=== PATIENT | male | born 1950 | race African-American/Black ===

== ENCOUNTER 2020-10-10 07:36 | Inpatient (IN) | payer OTHER, MEDICARE ==
[~2020-10-10] VITALS: Ht 182.9 cm; Wt 101.7 kg
[2020-10-10 08:09] LABS: Basophils # (auto) 0 10 ^3/uL (0-0.2); Basophils % (auto) 0.9 % (0.0-2.0); Eosinophils # (auto) 0.2 10 ^3/uL (0-0.8); Eosinophils % (auto) 3.8 % (0.0-7.0); Hematocrit 47.2 % (41.0-53.0); Hemoglobin 16.4 g/dL (13.5-17.5); Lymphocytes # (auto) 1.3 10 ^3/uL (0.4-5.4); Lymphocytes % (auto) 23.1 % (10.0-50.0); Mean Corpuscular Hemoglobin 28.7 pg (28.0-32.0); Mean Corpuscular Hgb Conc. 34.7 g/dL (32.0-36.0); Mean Corpuscular Volume 82.6 fL (80.0-100.0); Monocytes # (auto) 0.4 10 ^3/uL (0-1.3); Monocytes % (auto) 7.4 % (0.0-12.0); Neutrophils # (auto) 3.5 10 ^3/uL (1.6-8.6); Neutrophils % (auto) 64.8 % (37.0-80.0); Nucleated Red Blood Cells % 0.1 %; Red Blood Cells 5.71 10^6/uL (4.5-5.90); White Blood Cell 5.4 10^3/uL (4.4-10.8)
[2020-10-10] MEDS ORDERED: ONDANSETRON HCL 4 MG/2 ML VIAL ONE (08:13)
[2020-10-10] MEDS ORDERED: MORPHINE SULFATE 4 MG/ML SYR/VIAL ONE (08:13)
[2020-10-10] MEDS ORDERED: NITROGLYCERIN 0.4 MG SL TAB SL ONE (08:15)
[2020-10-10] MEDS ORDERED: MORPHINE SULFATE 4 MG/ML SYR/VIAL IV ONE (08:15)
[2020-10-10] MEDS ORDERED: ONDANSETRON HCL 4 MG/2 ML VIAL IV ONE (08:15)
[2020-10-10 08:26] LABS: Albumin 3.7 g/dL (3.4-5.0); Anion Gap 6 (5-15); Blood Urea Nitrogen 16 mg/dL (7-18); Calcium 9.1 mg/dL (8.5-10.1); Carbon Dioxide 25 mmol/L (21-32); Chloride 108 mmol/L (98-107); Glucose 101 mg/dL (74-106); Magnesium 2.4 mg/dL (1.6-2.6); Potassium 4.1 mmol/L (3.5-5.1); Sodium 139 mmol/L (136-145)
[2020-10-10 08:32] LABS: Alanine Aminotransferase 35 U/L (16-61); Alkaline Phosphatase 112 U/L (45-117); Aspartate Aminotransferase 22 U/L (15-37); Bilirubin, Total 0.4 mg/dL (0.2-1.0); GFR African American 103 mL/min; GFR Non-African American 85 mL/min; Total Protein 8.5 g/dL (6.4-8.2)
[2020-10-10] MEDS ORDERED: SODIUM CHLORIDE 0.9% 1,000 ML IV ONE (09:30)
[2020-10-10] MEDS ORDERED: PROMETHAZINE HCL 25 MG/ML 1ML IV PRN (10:30)
[2020-10-10] MEDS ORDERED: TEMAZEPAM 15 MG CAP PO PRN (10:30)
[2020-10-10] MEDS ORDERED: ACETAMINOPHEN 500 MG TAB PO PRN (10:30)
[2020-10-10] MEDS ORDERED: NITROGLYCERIN 0.4 MG SL TAB SL PRN (10:30)
[2020-10-10] MEDS ORDERED: MORPHINE SULFATE INJECTION 2 MG/ML SYRG IV PRN ×2 (10:30)
[2020-10-10] MEDS ORDERED: DEXTROSE (50%) 50ML SYRG IV PRN (10:30)
[2020-10-10] MEDS ORDERED: LACTULOSE 20Gm/30ML SOLN PO PRN (10:30)
[2020-10-10] MEDS ORDERED: IOPAMIDOL 76 % (ISOVUE-370) 100ML BTL IV ONE (10:36)
[2020-10-10 10:37] LABS: Urine Bacteria NONE SEEN /hpf (None Seen); Urine Blood Negative /uL (Negative); Urine Hyaline Cast FEW /lpf (0 - 2); Urine Mucus FEW (None Seen); Urine Specific Gravity 1.018 (1.001-1.035); Urine WBC 1 /hpf (0 - 3)
[2020-10-10 11:29] LABS: Alcohol, Urine < 3.0 mg/dL (0-10); Amphetamine Screen, Urine NEGATIVE (NEGATIVE); Barbiturate Scree,Urine NEGATIVE (NEGATIVE); Benzodiazephine Screen, Urine NEGATIVE (NEGATIVE); Cannabinoid Screen, Urine NEGATIVE (NEGATIVE); Cocaine Screen, Urine NEGATIVE (NEGATIVE); Opiate Scree,Urine POSITIVE (NEGATIVE); Phencyclidine Screen, Urine NEGATIVE (NEGATIVE)
[2020-10-10] MEDS: InsuLIN REG 1unit/0.01ml Soln (100units/ml) SC SCH ×3 (11:30→22:00)
[2020-10-10] MEDS: ACCU-CHEK COMFORT CURVE STRIP VI SCH ×3 (11:48→22:15)
[2020-10-10] MEDS ORDERED: DILT90TA PO (13:06)
[2020-10-10] MEDS ORDERED: HYDR25TA5 PO (13:06)
[2020-10-10] MEDS ORDERED: TRAZ-181 PO (13:07)
[2020-10-10] MEDS ORDERED: BENA10TA15 PO (13:07)
[2020-10-10] MEDS ORDERED: CITA-73 PO (13:07)
[2020-10-10] MEDS ORDERED: POTA1080 PO (13:11)
[2020-10-10] MEDS ORDERED: PANT40TA2 PO (13:11)
[2020-10-10] MEDS ORDERED: CHOL20007 OR (13:11)
[2020-10-10] MEDS ORDERED: ATO40T PO (13:11)
[2020-10-10] MEDS ORDERED: ASPI1TAB20 PO (13:11)
[2020-10-10] MEDS ORDERED: TAMS1CAP25 PO (13:11)
[2020-10-10 13:27] VITALS: BP 141/76
[2020-10-10] MEDS: SODIUM CHLORIDE 0.9% 1,000 ML IV SCH (14:40)
[2020-10-10] MEDS: traMADol HCL 50 MG TAB PO PRN ×2 (14:41→20:19)
[2020-10-10 15:19] VITALS: BP 141/76
[2020-10-10 17:00] VITALS: BP 133/78
[2020-10-10] MEDS ORDERED: levoFLOXacin 500MG 100 ML IV ONE (20:15)
[2020-10-10 22:00] VITALS: BP 137/83
[2020-10-10] MEDS ORDERED: ATORVASTATIN 20 MG TAB PO SCH (22:00)
[2020-10-11] MEDS: SODIUM CHLORIDE 0.9% 1,000 ML IV SCH ×2 (00:08→13:36)
[2020-10-11] MEDS: traMADol HCL 50 MG TAB PO PRN ×3 (04:50→15:43)
[2020-10-11 05:00] VITALS: BP 136/94
[2020-10-11] MEDS: InsuLIN REG 1unit/0.01ml Soln (100units/ml) SC SCH ×2 (06:20→11:30)
[2020-10-11] MEDS: ACCU-CHEK COMFORT CURVE STRIP VI SCH ×2 (06:20→11:30)
[2020-10-11 06:42] LABS: Cholesterol 123 mg/dL (< 200); HDL Cholesterol 44 mg/dL (40-59); LDL Cholesterol 66 mg/dL (< 100); Triglycerides 89 mg/dL (< 150)
[2020-10-11 09:00] VITALS: BP 135/91
[2020-10-11] MEDS ORDERED: ENOXAPARIN SOD 40 MG/0.4 ML SYRINGE SC SCH (10:00)
[2020-10-11] MEDS ORDERED: levoFLOXacin 500MG 100 ML IV SCH (10:00)
[2020-10-11] MEDS ORDERED: ASPirin 81 mg TAB PO SCH (10:00)
[2020-10-11 13:00] VITALS: BP 134/92
[2020-10-11 13:57] VITALS: BP 135/90
== END 2020-10-11 15:15 | disposition home or self-care (01) | DRG 206 ==
LOC: ER 07:36 → TELE 07:37 → TELE-EAST 12:33 → TELE-CENTR 18:43
PROVIDERS: ADMIT Internal Medicine; ATTEND Internal Medicine
DX: M94.0 Chondrocostal junction syndrome [Tietze] (principal); I10 Essential (primary) hypertension; N40.0 Benign prostatic hyperplasia without lower urinary tract symptoms; G62.9 Polyneuropathy, unspecified; E66.01 Morbid (severe) obesity due to excess calories; R73.03 Prediabetes; Z20.822 Contact with and (suspected) exposure to COVID-19; Z68.20 Body mass index [BMI] 20.0-20.9, adult; E78.5 Hyperlipidemia, unspecified; I25.10 Atherosclerotic heart disease of native coronary artery without angina pectoris; Z83.3 Family history of diabetes mellitus; Z82.3 Family history of stroke
CPT/HCPCS: 36415; 71045; 71275; 80053; 80061; 80307; 81001; 82550; 82962; 83036; 83735; 83880; 84484; 85025; 85379; 85652; 86141; 87070; 87205; 87426; 93005; 93306; 96361; 96374; 96375; G0378; J1956; J2405

== ENCOUNTER 2021-11-23 09:35 | Observation (INO) | payer MEDICARE, OTHER ==
[~2021-11-23] VITALS: Ht 162.6 cm; Wt 97.1 kg
[~2021-11-23 09:35] MED LIST: ASPI1TAB20 PO; ATO40T PO; BENA10TA15 PO; CHOL20007 OR; CITA-73 PO; DILT90TA PO; HYDR25TA5 PO; PANT40TA2 PO; POTA1080 PO; TAMS1CAP25 PO; TRAZ-181 PO
[2021-11-23 11:10] LABS: Basophils # (auto) 0 10 ^3/uL (0-0.2); Basophils % (auto) 0.8 % (0.0-2.0); Eosinophils # (auto) 0.3 10 ^3/uL (0-0.8); Hematocrit 47.1 % (41.0-53.0); Hemoglobin 15.9 g/dL (13.5-17.5); Lymphocytes % (auto) 20.6 % (10.0-50.0); Mean Corpuscular Hemoglobin 28.4 pg (28.0-32.0); Mean Corpuscular Hgb Conc. 33.8 g/dL (32.0-36.0); Mean Corpuscular Volume 84.2 fL (80.0-100.0); Monocytes # (auto) 0.4 10 ^3/uL (0-1.3); Monocytes % (auto) 7.8 % (0.0-12.0); Neutrophils # (auto) 3.2 10 ^3/uL (1.6-8.6); Neutrophils % (auto) 64.8 % (37.0-80.0); Nucleated Red Blood Cells % 0.1 %; Red Blood Cells 5.59 10^6/uL (4.5-5.90); Red Cell Distribution Width 15.5 % (11.8-14.3); White Blood Cell 4.9 10^3/uL (4.4-10.8)
[2021-11-23 11:21] LABS: Albumin 3.5 g/dL (3.4-5.0); BUN/Creatinine Ratio 13.6; Calcium 9.2 mg/dL (8.5-10.1); Potassium 3.7 mmol/L (3.5-5.1)
[2021-11-23 11:24] LABS: Bilirubin, Total 0.7 mg/dL (0.2-1.0); Total Protein 7.7 g/dL (6.4-8.2)
[2021-11-23] MEDS ORDERED: NITROGLYCERIN 0.4 MG SL TAB SL PRN (18:00)
[2021-11-23] MEDS ORDERED: MORPHINE SULFATE INJ 2 MG/ml SYRG IV PRN (18:00)
[2021-11-24 04:45] LABS: Basophils # (auto) 0 10 ^3/uL (0-0.2); Basophils % (auto) 0.8 % (0.0-2.0); Eosinophils # (auto) 0.2 10 ^3/uL (0-0.8); Eosinophils % (auto) 5.2 % (0.0-7.0); Hematocrit 43.8 % (41.0-53.0); Hemoglobin 15.1 g/dL (13.5-17.5); Lymphocytes # (auto) 1.2 10 ^3/uL (0.4-5.4); Mean Corpuscular Hemoglobin 28.8 pg (28.0-32.0); Mean Corpuscular Hgb Conc. 34.3 g/dL (32.0-36.0); Mean Corpuscular Volume 83.7 fL (80.0-100.0); Monocytes # (auto) 0.5 10 ^3/uL (0-1.3); Monocytes % (auto) 11.5 % (0.0-12.0); Neutrophils # (auto) 2.7 10 ^3/uL (1.6-8.6); Neutrophils % (auto) 57.5 % (37.0-80.0); Red Blood Cells 5.24 10^6/uL (4.5-5.90); Red Cell Distribution Width 15.4 % (11.8-14.3); White Blood Cell 4.7 10^3/uL (4.4-10.8)
[2021-11-24 04:59] LABS: BUN/Creatinine Ratio 16.7; Potassium 4.1 mmol/L (3.5-5.1)
[2021-11-24 05:09] VITALS: BP 129/72
[2021-11-24 09:00] VITALS: BP 135/89
[2021-11-24] MEDS ORDERED: traZODone HCL 50 MG TAB PO PRN (10:45)
[2021-11-24 12:30] VITALS: BP 129/73
[2021-11-24] MEDS ORDERED: ATORVASTATIN 20 MG TAB PO SCH (22:00)
[2021-11-25] MEDS ORDERED: TAMSULOSIN HYDROCHLORIDE 0.4 MG CAP PO SCH (10:00)
[2021-11-25] MEDS ORDERED: CITALOPRAM HYDROBR 20 MG TAB PO SCH (10:00)
[2021-11-25] MEDS ORDERED: ASPirin-EC 81 mg tab PO SCH (10:00)
[2021-11-25] MEDS ORDERED: BENAZEPRIL HCL 10 MG TAB PO SCH (10:00)
[2021-11-25] MEDS ORDERED: PANTOPRAZOLE 40 MG TAB PO SCH (10:00)
== END 2021-11-24 14:54 | disposition home or self-care (01) ==
LOC: ER 09:35 → TELE-WESTW 17:47
PROVIDERS: ADMIT Internal Medicine; ATTEND Internal Medicine
DX: R00.1 Bradycardia, unspecified (principal); R55 Syncope and collapse; R07.9 Chest pain, unspecified
CPT/HCPCS: 36415; 71045; 80048; 80053; 83735; 83880; 84484; 85025; 87426; 93005; 99285; G0378